=== PATIENT | female | born 1960 | race Caucasian/White ===

== ENCOUNTER → 2021-02-21 | Outpatient (CLI) | payer OTHER ==
[~2021-02-21] MED LIST: ACETAMINOPHEN325 M1 PO; ADULT LOW DOSE81 MG PO; AMBIEN 5 MG TABL5 M1; AMBIEN 5 MG TABL5 M1 PO; ANTI-GAS600 UNIT PO; ANTIPYRINE-BENZ10 ML OTIC; BACITRACIN 500U30 G1 TOP; BACLOFEN 10MG T10 M1 PO; BACLOFEN 10MG T10 MG PO; CIPRO250 MG; COLACE 100 MG100 MG; CRESTOR40 MG PO; CYMBALTA30 MG; EUCERIN CREME57 GM TOP; FLONASE 0.05%50 MCG NASAL; FLUOXETINE HCL40 MG PO; GAS-X125 MG PO; HUMALOG MI100 UNIT/6 SQ; HUMALOG100 UNIT/1 SUBQ; HYDROCHLOROTHIA25 M2 PO; KLOR-CON 10 ER10 MEQ PO; LANTUS SUBQ; LASIX 40 MG TAB40 M1 PO; LIDODERM 5%1 PATC1 TRANSDERM; LIPITOR10 MG; LIPITOR20 MG PO; LISINOPRIL20 MG PO; LOPERAMIDE 2 MG2 M1 PO; LOVENOX SC; LYRICA 50 MG50 MG PO; MAGNESIUM 300300 MG PO; MEDI-PHEDRINE30 MG PO; METAMUCIL0.52 GM PO; MIRALAX17 GM PO; NEURONTIN 300300 M1 PO; NEXIUM20 M1 PO; ONDANSETRON HCL4 M2 PO; OSPHENA60 MG PO; OXYCODONE HCL15 MG PO; OXYCONTIN10 M1 PO; OXYCONTIN20 MG; OYSTER SHELL 51 EACH PO; PERCOCET 10-321 EACH PO; PROAIR HFA8.5 GM PO; PROTONIX40 M2 PO; THERA-M CAPLET1 EAC1 PO; TOPROL XL25 MG PO; TUMS PO; VICODIN PO; ZANAFLEX2 M2; ZESTRIL10 MG PO
== END ==
LOC: HYPER 08:08
PROVIDERS: ATTEND Emergency Medicine
DX: E11.622 Type 2 diabetes mellitus with other skin ulcer (principal); L89.154 Pressure ulcer of sacral region, stage 4; L98.491 Non-pressure chronic ulcer of skin of other sites limited to breakdown of skin; E11.65 Type 2 diabetes mellitus with hyperglycemia; E11.40 Type 2 diabetes mellitus with diabetic neuropathy, unspecified; E78.5 Hyperlipidemia, unspecified; I89.0 Lymphedema, not elsewhere classified; I10 Essential (primary) hypertension; G47.30 Sleep apnea, unspecified; G47.00 Insomnia, unspecified; J45.909 Unspecified asthma, uncomplicated; M21.40 Flat foot [pes planus] (acquired), unspecified foot; M54.9 Dorsalgia, unspecified; M17.11 Unilateral primary osteoarthritis, right knee; M48.02 Spinal stenosis, cervical region; M48.061 Spinal stenosis, lumbar region without neurogenic claudication; F32.1 Major depressive disorder, single episode, moderate; F41.9 Anxiety disorder, unspecified; Z98.49 Cataract extraction status, unspecified eye; Z90.49 Acquired absence of other specified parts of digestive tract; Z90.710 Acquired absence of both cervix and uterus; Z79.4 Long term (current) use of insulin

== ENCOUNTER → 2021-03-08 | Outpatient (CLI) | payer OTHER | LOC: HYPER 12:52 | PROVIDERS: ATTEND Emergency Medicine | DX: E11.622 Type 2 diabetes mellitus with other skin ulcer (principal); L89.154 Pressure ulcer of sacral region, stage 4; L98.491 Non-pressure chronic ulcer of skin of other sites limited to breakdown of skin; L89.323 Pressure ulcer of left buttock, stage 3; L98.411 Non-pressure chronic ulcer of buttock limited to breakdown of skin; E11.65 Type 2 diabetes mellitus with hyperglycemia; E11.40 Type 2 diabetes mellitus with diabetic neuropathy, unspecified; E78.5 Hyperlipidemia, unspecified; I89.0 Lymphedema, not elsewhere classified; I10 Essential (primary) hypertension; G47.30 Sleep apnea, unspecified; G47.00 Insomnia, unspecified; J45.909 Unspecified asthma, uncomplicated; M21.40 Flat foot [pes planus] (acquired), unspecified foot; M54.9 Dorsalgia, unspecified; M17.11 Unilateral primary osteoarthritis, right knee; M48.02 Spinal stenosis, cervical region; M48.061 Spinal stenosis, lumbar region without neurogenic claudication; F32.1 Major depressive disorder, single episode, moderate; F41.9 Anxiety disorder, unspecified; Z98.49 Cataract extraction status, unspecified eye; Z90.49 Acquired absence of other specified parts of digestive tract; Z90.710 Acquired absence of both cervix and uterus; Z79.4 Long term (current) use of insulin ==

== ENCOUNTER → 2021-03-14 | Outpatient (CLI) | payer OTHER | LOC: HYPER 08:23 | PROVIDERS: ATTEND Emergency Medicine | DX: E11.622 Type 2 diabetes mellitus with other skin ulcer (principal); L89.154 Pressure ulcer of sacral region, stage 4; L98.491 Non-pressure chronic ulcer of skin of other sites limited to breakdown of skin; L89.323 Pressure ulcer of left buttock, stage 3; L98.411 Non-pressure chronic ulcer of buttock limited to breakdown of skin; E11.65 Type 2 diabetes mellitus with hyperglycemia; M41.20 Other idiopathic scoliosis, site unspecified; M48.02 Spinal stenosis, cervical region; I89.0 Lymphedema, not elsewhere classified; E78.5 Hyperlipidemia, unspecified; J45.909 Unspecified asthma, uncomplicated; M17.11 Unilateral primary osteoarthritis, right knee; E11.40 Type 2 diabetes mellitus with diabetic neuropathy, unspecified; M51.36 Other intervertebral disc degeneration, lumbar region; G47.00 Insomnia, unspecified; G47.30 Sleep apnea, unspecified; F41.9 Anxiety disorder, unspecified; F32.9 Major depressive disorder, single episode, unspecified; Z79.4 Long term (current) use of insulin; Z79.899 Other long term (current) drug therapy ==

== ENCOUNTER → 2021-03-30 | Outpatient (CLI) | payer OTHER | LOC: HYPER 08:04 | PROVIDERS: ATTEND Emergency Medicine | DX: E11.622 Type 2 diabetes mellitus with other skin ulcer (principal); L89.154 Pressure ulcer of sacral region, stage 4; L98.491 Non-pressure chronic ulcer of skin of other sites limited to breakdown of skin; L89.323 Pressure ulcer of left buttock, stage 3; L98.411 Non-pressure chronic ulcer of buttock limited to breakdown of skin; E11.65 Type 2 diabetes mellitus with hyperglycemia; M41.20 Other idiopathic scoliosis, site unspecified; E11.40 Type 2 diabetes mellitus with diabetic neuropathy, unspecified; M48.02 Spinal stenosis, cervical region; I89.0 Lymphedema, not elsewhere classified; J45.909 Unspecified asthma, uncomplicated; M54.9 Dorsalgia, unspecified; E78.5 Hyperlipidemia, unspecified; I10 Essential (primary) hypertension; M17.11 Unilateral primary osteoarthritis, right knee; M51.36 Other intervertebral disc degeneration, lumbar region; G47.00 Insomnia, unspecified; G47.30 Sleep apnea, unspecified; F41.9 Anxiety disorder, unspecified; F32.1 Major depressive disorder, single episode, moderate; Z79.4 Long term (current) use of insulin; Z79.899 Other long term (current) drug therapy ==

== ENCOUNTER → 2021-04-13 | Outpatient (CLI) | payer OTHER | LOC: HYPER 10:54 | PROVIDERS: ATTEND Emergency Medicine | DX: E11.622 Type 2 diabetes mellitus with other skin ulcer (principal); L89.154 Pressure ulcer of sacral region, stage 4; L98.491 Non-pressure chronic ulcer of skin of other sites limited to breakdown of skin; E11.65 Type 2 diabetes mellitus with hyperglycemia; M41.20 Other idiopathic scoliosis, site unspecified; E11.40 Type 2 diabetes mellitus with diabetic neuropathy, unspecified; M48.02 Spinal stenosis, cervical region; I89.0 Lymphedema, not elsewhere classified; J45.909 Unspecified asthma, uncomplicated; M54.9 Dorsalgia, unspecified; E78.5 Hyperlipidemia, unspecified; I10 Essential (primary) hypertension; K21.9 Gastro-esophageal reflux disease without esophagitis; M17.11 Unilateral primary osteoarthritis, right knee; M51.36 Other intervertebral disc degeneration, lumbar region; G47.00 Insomnia, unspecified; G47.30 Sleep apnea, unspecified; F41.9 Anxiety disorder, unspecified; F32.1 Major depressive disorder, single episode, moderate; Z79.4 Long term (current) use of insulin ==

== ENCOUNTER → 2021-05-04 | Outpatient (CLI) | payer OTHER | LOC: HYPER 10:02 | PROVIDERS: ATTEND Emergency Medicine | DX: E11.622 Type 2 diabetes mellitus with other skin ulcer (principal); L89.154 Pressure ulcer of sacral region, stage 4; L98.491 Non-pressure chronic ulcer of skin of other sites limited to breakdown of skin; E11.65 Type 2 diabetes mellitus with hyperglycemia; E11.40 Type 2 diabetes mellitus with diabetic neuropathy, unspecified; E66.9 Obesity, unspecified; E78.5 Hyperlipidemia, unspecified; I89.0 Lymphedema, not elsewhere classified; I10 Essential (primary) hypertension; G47.00 Insomnia, unspecified; G47.30 Sleep apnea, unspecified; J45.909 Unspecified asthma, uncomplicated; K21.9 Gastro-esophageal reflux disease without esophagitis; M54.9 Dorsalgia, unspecified; M41.20 Other idiopathic scoliosis, site unspecified; M48.02 Spinal stenosis, cervical region; M17.11 Unilateral primary osteoarthritis, right knee; M51.36 Other intervertebral disc degeneration, lumbar region; F41.9 Anxiety disorder, unspecified; F32.1 Major depressive disorder, single episode, moderate; Z79.4 Long term (current) use of insulin; Z68.33 Body mass index [BMI] 33.0-33.9, adult ==

== ENCOUNTER → 2021-06-01 | Outpatient (CLI) | payer OTHER | LOC: HYPER 13:00 | PROVIDERS: ATTEND Emergency Medicine | DX: E11.622 Type 2 diabetes mellitus with other skin ulcer (principal); L89.154 Pressure ulcer of sacral region, stage 4; L98.491 Non-pressure chronic ulcer of skin of other sites limited to breakdown of skin; E11.65 Type 2 diabetes mellitus with hyperglycemia; E11.40 Type 2 diabetes mellitus with diabetic neuropathy, unspecified; E66.9 Obesity, unspecified; E78.5 Hyperlipidemia, unspecified; I89.0 Lymphedema, not elsewhere classified; I10 Essential (primary) hypertension; G47.00 Insomnia, unspecified; G47.30 Sleep apnea, unspecified; J45.909 Unspecified asthma, uncomplicated; K21.9 Gastro-esophageal reflux disease without esophagitis; M54.9 Dorsalgia, unspecified; M41.20 Other idiopathic scoliosis, site unspecified; M48.02 Spinal stenosis, cervical region; M17.11 Unilateral primary osteoarthritis, right knee; M51.36 Other intervertebral disc degeneration, lumbar region; F41.9 Anxiety disorder, unspecified; F32.1 Major depressive disorder, single episode, moderate; Z79.4 Long term (current) use of insulin; Z68.33 Body mass index [BMI] 33.0-33.9, adult ==